=== PATIENT | male | born 1990 | race Caucasian/White ===

== ENCOUNTER 2025-06-05 10:43 | Emergency (ER) | payer OTHER, SELFPAY ==
[2025-06-05 11:02] VITALS: BP 132/91; PULSE 65; RESP 18; TEMP 36.7; O2SAT 99; BMI 18.2
--- NOTE | 2025-06-05 11:14 | ED_ITS ---
HPI - Abdominal Pain General: Chief Complaint: Abdominal Pain Stated Complaint: lump / pain groin area Time Seen by Provider: 06/05/25 11:05 History of Present Illness: This is a healthy 35-year-old male who presents to the emergency room from work. He was pulling up some gay and felt a pop in his right inguinal area and then has a lump there now. He is able to reduce this by squatting. This is an acute event. He had not had a hernia before this. No nausea or vomiting. No other abdominal pain. Review of Systems Narrative: Constitutional symptoms: Negative except as documented in HPI. Skin symptoms: Negative except as documented in HPI. Eye symptoms: Negative except as documented in HPI. ENMT symptoms: Negative except as documented in HPI. Respiratory symptoms: Negative except as documented in HPI. Cardiovascular symptoms: Negative except as documented in HPI. Gastrointestinal symptoms: Negative except as documented in HPI. Genitourinary symptoms: Negative except as documented in HPI. Musculoskeletal symptoms: Negative except as documented in HPI. Neurologic symptoms: Negative except as documented in HPI. Psychiatric symptoms: Negative except as documented in HPI. Endocrine symptoms: Negative except as documented in HPI. Physical Exam Narrative: EXAM NARRATIVE: General: Alert, no acute distress. Skin: Warm, dry. Head: Normocephalic, atraumatic. Neck: Supple, trachea midline. Eye: Extraocular movements are intact. Ears, nose, mouth and throat: mucosa moist. Cardiovascular: Regular, Normal peripheral perfusion. Respiratory: Lungs are clear to auscultation, respirations are non-labored, breath sounds are equal, Symmetrical chest wall expansion. Gastrointestinal: Soft, Nontender, Non distended. Patient does have a right sided inguinal hernia that initially does have bowel. After he squats he reduc es it and there is no longer hernia there. However it comes back out 1 more time before I even left the room. He was able to reduce it again. Musculoskeletal: Normal ROM, no deformity. Neurological: Alert and oriented, No focal neurological deficit observed. Psychiatric: Cooperative, appropriate mood & affect. Course Vital Signs: Vital signs: Vital Signs Temperature 98.1 F 06/05/25 11:02 Pulse Rate 65 06/05/25 11:02 Respiratory Rate 18 06/05/25 11:02 Blood Pressure 132/91 06/05/25 11:02 Pulse Oximetry 99 06/05/25 11:02 Oxygen Delivery Me thod Room Air 06/05/25 11:02 MDM - Abdominal Pain Medical Decision Making Medical decision making: Differential diagnosis including but not limited to and based on the above HPI, review of systems and physical exam: Patient has a new and obvious inguinal hernia. He is able to self reduce this. No imaging or lab work needed today. He needs follow-up with general surgery and likely will need repair of this hernia. Assessment and plan: Inguinal hernia ?Limit weight lifting at this point. Follow-up with surgery. - Discharged home - Discussed plan with patient. Answered any questions. - Evaluation and treatment of this problem were appropriate in the emergency setting. No radiology studies performed this visit Discharge Plan Discharge Patient Disposition: Home Clinical Impression: Inguinal hernia of right side without obstruction or gangrene Condition: Stable Discharge Orders: Discharge ED (Routine); Ordered 06/05/25 Ordered By: Rita Hernandez Referrals: Luciano Ribeiro MD [Physician, General Surgery] Referral Note: Please call for follow-up appointment with general surgery or the general surgeon as recommended by your Workmen's Comp. Discharge Diet: Usual diet Discharge Activity: Increase activity as tolerated Patient Instructions: Opioid Safety, Pain Management, Patient Portal & Mike Instructions Activity Restrictions/Additional Instructions: Limited weight lifting. Do not lift more than 5 to 10 pounds at a time. Please call for follow-up appointment with general surgery or the general surgeon as recommended by your Workmen's Comp. if you develop worsening pain or cannot reduce the hernia please seek emergent medical attention. If you develop nausea and vomiting seek emergent medical attention Thank you for choosing [facility] for your healthcare needs today. You have been screened and evaluated and felt safe for discharge. Health conditions do change or evolve sometimes and as such it is important that you follow up with your Primary Doctor to be re checked, 3-5 days is a general good time frame for follow up. You are always welcome to return to the ED for re assessment if your symptoms are worsening or you have new concerns Print Language: Polish Coding Level of Care Code ED Java Mobile Developer for Marly German
== END 2025-06-05 11:23 | disposition home or self-care (01) ==
PROVIDERS: Emergency Provider Emergency Medicine
DX: K40.90 Unilateral inguinal hernia, without obstruction or gangrene, not specified as recurrent (principal)
CPT/HCPCS: 99281

== ENCOUNTER 2025-06-18 07:02 | Day surgery (SDC) | payer OTHER, SELFPAY ==
[2025-06-18] VITALS (14 sets, daily range): BP systolic 91–134; BP diastolic 56–86; PULSE 60–76; RESP 11–18; TEMP 36.2–36.7; O2SAT 93–97; BMI 20.2
--- NOTE | 2025-06-18 09:20 | W.PM.OPSUD ---
Surgery/Procedure H&P Update DATE OF PROCEDURE: June 18, 2025 DATE H&P PERFORMED: 06/11/25 H&P UPDATE INFORMATION: I have reviewed H&P completed within last 30 days, I have examined patient prior to procedure, No changes to prior documentation and Risks and benefits of the procedure reviewed PLANNED PROCEDURE: Operation Date: 06/18/25 09:05 Proposed Procedures p RIGHT Open Inguinal Hernia Repair w/ Mesh [id number] K46.9(Right) - Luciano Ribeiro MD
--- NOTE | 2025-06-18 09:28 | P.ANESASSM_ITS ---
Pre-Anesthetic Assessment Height/Weight: Height 5 ft 11 in Weight 145 lb Temp Pulse Resp BP Pulse Ox O2 Del Method 98.1 F 74 16 126/85 96 Room Air 06/18/25 07:39 06/18/25 07:39 06/18/25 07:39 06/18/25 07:39 06/18/25 07:39 06/18/25 08:17 Preop Diagnosis: Inguinal hernia Operation Date: 06/18/25 09:05 Proposed Procedures p RIGHT Open Inguinal Hernia Repair w/ Mesh [id number] K46.9(Right) - Luciano Ribeiro MD Was Beta Girish taken within 24 hours: N/A Was Clonidine taken within 24 hours: N/A Last intake: Intake Last Liquid Date 06/18/25 Last Liquid Time 05:30 Last Solid Date 06/17/25 Last Solid Time 19:00 Social Alcohol and Tobacco Occasional alcohol use, smokes daily Exam alert, oriented x 3, clear to auscultation bilaterally and regular rate & rhythm Airway Submandibular: within normal limits Cervical ROM: within normal limits Mallampati: Class III Comments: Comments: Partial on the bottom, denies any loose teeth Anesthetic Plan ASA status: 2 Anesthesia: General and Regional (specify below) Other: No prior issues with anesthesia NPO since yesterday evening Current smoker, nicotine Denies any cardiac issues METs greater than 4 Plan for general anesthesia with possible peripheral nerve block in the PACU setting Medications/Allergies Home Medications ?Medication ?Instructions ?Recorded ?Confirmed ?Last Taken ?Type No Known Home Medications 06/11/25 110 12/06 Unknown History Allergies Allergy/AdvReac Type Severity Reaction Status Date / Time No Known Allergies Allergy Verified 06/17/25 10:12 [facility] Anesthesia Social History Smoking and tobacco/nicotine status: former use of tobacco/nicotine
[2025-06-18] MEDS: ceFAZolin 2,000 mg SDV 2000 MG IVP (10:11)
[2025-06-18] MEDS: BUPivacaine 0.25% INJ 10 mL INJECTION (10:45)
[2025-06-18] MEDS: lidocaine-epi 1% 20 mL INJ INJECTION (10:45)
--- NOTE | 2025-06-18 11:00 | PM.OP ---
Operative Report Date of procedure: June 18, 2025 Pre-op diagnosis: Right inguinal hernia Post-op diagnosis: same Post-op findings: Direct inguinal hernia. Reduced hernia sac into the abdomen. Repaired hernia using plug and patch mesh size medium. Procedure done: Open right inguinal hernia Implants: Plug and patch mesh size medium Specimens removed/disposition: N/A Pathology: none sent Surgeon: Luciano Ribeiro MD Pediatric Licensed Practical Nurse: N/A Anesthesia: MAC Estimated blood loss (mL): 5 Complications: N/A Findings: Direct inguinal hernia. Reduced hernia sac into the abdomen. Repaired hernia using plug and patch mesh size medium. Condition: stable Disposition: same day Brief History: 35-year-old male who presented with a right inguinal hernia. Discussed risk and benefits and patient agreed to proceed with open right inguinal hernia repair with mesh. Procedure: Patient brought to the OR and placed supine on the table. SCDs were placed and functioning. Preoperative ancef was administered. General anesthesia was induced. A green catheter was placed without any complications. The right groin was prepped and draped in the usual sterile fashion. Local infiltration at the surgical site was done using lidocaine/bupivacaine with epinephrine. A 5cm incision was carried out over the right inguinal canal. Tissue dissection was carried down to the external oblique fascia using electrocautery. The fascia was incised and the cord structures were identified. Cord structures were dissected of the hernia sac. I identified an indirect inguinal hernia. The hernia sac was dissected and reduced into the abdomen. The plug was placed at the site of the deep inguinal ring and the posterior wall of the inguinal canal was reinforced using a mesh patch. The plug was fixed using 2-0 ethibond to the cojoint ligament and inguinal ligament with interrupted sutures. The mesh patch was sutured to the cojoint tendon and the inguinal ligament using interrupted sutures with 2-0 ethibond. The external oblique fascia was closed using 3-0 vicryl. Skin was closed using 4-0 monocryl and surgical glue. Green was removed. The patient woke up from anesthesia and was transferred to PACU without any complications.
[2025-06-18] MEDS: fentaNYL 50 mcg/mL INJ 2mL IVP (11:25)
--- NOTE | 2025-06-18 11:38 | PC.NURSE ---
1135 - slight edema noted to left lower lip area - tongue, cheek unremarkable - pt does not complain of pain in lower lip area
--- NOTE | 2025-06-18 12:55 | ANE.PACU2 ---
Inpatient post-anesthesia follow up: Airway intact: Yes Vital signs: Temperature 97.8 F Pulse Rate 60 Respiratory Rate 16 Blood Pressure 117/70 Pulse Oximetry 97 Oxygen Delivery Me thod Room Air Oxygen Flow Rate 8 Fraction of Inspir ed Oxygen Hydration adequate: Yes Nausea and vomiting: No Pain level: 1 Mental status: Baseline
== END 2025-06-18 12:55 | disposition home or self-care (01) ==
PROVIDERS: Visit Provider Student in an Organized Health Care Education/Training Program
PROC: (CPT 49505; principal; 2025-06-18 09:05)
DX: K40.90 Unilateral inguinal hernia, without obstruction or gangrene, not specified as recurrent (principal); F17.200 Nicotine dependence, unspecified, uncomplicated
CPT/HCPCS: 49505; 51702; C1781; J0131; J0690; J1100; J1885; J2250; J2405; J2704; J3010; J3490; J7030; J9999